=== PATIENT | female | born 1985 | race Caucasian/White ===

== ENCOUNTER 2020-05-11 16:49 | Emergency (ER) | payer MEDICAID, SELFPAY ==
[2020-05-11 16:57] VITALS: BP 140/89; PULSE 85; RESP 20; TEMP 36.8; O2SAT 98; BMI 38.3
[2020-05-11 16:59] VITALS: BP 140/89; PULSE 85; RESP 20; TEMP 36.8; O2SAT 98; BMI 38.4
--- NOTE | 2020-05-11 17:03 | XR_ITS ---
PROCEDURE: XR RIBS LT MIN 3V W CXR1V CLINICAL INDICATION: FALL COMPARISON: No exams were available for comparison FINDINGS: All the left ribs 1 through 12 are visualized and appear intact with no evidence of recent or old fracture. The lung mackey are clear of infiltrate. The cardiac silhouette and vascularity are normal and there is no pleural fluid and no pneumothorax. IMPRESSION: No acute findings. Dictated by: Dr. Andrei Gleason MD 05/11/2020 19:39 Dr. Andrei Gleason MD in [place] 05/11/2020 19:39
--- NOTE | 2020-05-11 17:31 | HMH.EDUTC ---
[facility] [place] Disposition Clinical Impression: Rib contusion Qualifiers: Encounter type: initial encounter Laterality: left Qualified Code(s): S20.212A - Contusion of left front wall of thorax, initial encounter Disposition: Home, Self-Care Condition on Discharge: Good Instructions: DI for Rib Contusion, Contusion, DI for Contusion, Etodolac Additional Instructions: *Etodolac every 6 hours with meal as needed for pain/inflammation *Not additional anti-inflammatory like motrin, ibuprofen, aleve, advil with the above amount of Etodolac. You can still take Tylenol every 4 hours as needed if you need something else for pain *Ice 20 minutes every 2 hours for the first 48 hours after the initial injury followed by moist heat every 20 minutes 3-4 times a day to affected area *Keep this area active, no movement leads to more stiffness, However take it easy and avoid heavy lifting pushing or pulling *Follow up with you family doctor if no improvement for further treatment You may call back to the [facility] later this evening or tomorrow for official reading of your xray Follow up with your family doctor if no improvement or any worsening of symptoms May use over the counter Lidocaine patches may help with pain and discomfort Prescriptions: Etodolac [Etodolac 200mg Cap*] 200 mg PO Q6H PRN #20 cap PRN Reason: Moderate Pain Transmission Status: Pending to [facility] #[id number] Referrals: Moris Mosqueda [Primary Care Provider] - As needed Time of Disposition: 17:43 Medical Decision Making - Dylan Inquiry Pt receiving controlled substance: No Dylan was queried for this patient: No Vital Signs: 05/11/20 16:57 05/11/20 16:59 Temperature 98.2 F 98.2 F Temperature Source Oral Oral Pulse Rate [Left Radial] 85 85 Respiratory Rate 20 20 Blood Pressure [Right Arm] 140/89 140/89 Blood Pressure Mean [Right Arm] 106 106 Blood Pressure Source [Right Arm] Automatic Cuff Automatic Cuff Blood Pressure Position [Right Arm] Sitting Sitting 02 Sat by Pulse Oximetry 98 98 Oxygen Delivery Method Room Air Room Air Orders (Tests/Meds): ORDERS Category Date Time Status XR ribs LT min 3V w CXR1V Stat Exams 05/11/20 17:03 Taken - Radiology Data #1 Image(s): Chest (with left ribs 3 view) Image Reviewed: Yes I reviewed the patient's radiology image w/the ED provider Preliminary Findings: Normal/NAD, No Fracture Seen [facility] [place] HPI - General Stated complaint: Possible broken L ribs, fell 1023 Time Seen by Provider: 05/11/20 17:31 Mode of Arrival: Ambulatory Source of Information: Patient Limitations: No Limitations Description of Symptoms (Recalled from Triage Doc. by RN): c/o left rib pain, states she fell out of the chair on her right side but her left hurts. Denies any other injuries at this time. HEENT Symptoms (Recalled from RN notes): No Resp Symptoms (Recalled from RN notes): No Skin Symptoms (Recalled from RN notes): No MS Symptoms (Recalled from RN notes): Yes Functional Status (Recalled from RN notes): wnl - History of Present Illness Provider Complaint: Patient states that she fell over a week ago and has been having pain in her left lower rib area States that Tuesday it was doing better so she went to a [employer] and not sure if she over done it or what but ever since she has been having pain in her left lower ribs that is worse with movement or when she goes to stand up Denies any other injury - Related Data Previous Rx's Medication Instructions Recorded Etodolac [Etodolac 200mg Cap*] 200 mg PO Q6H PRN #20 cap 05/11/20 Allergies Allergy/AdvReac Type Severity Reaction Status Date / Time From CLARITIN-D Allergy Unknown I-HIVES Uncoded 06/28/17 14:44 - Worker's Comp Is this a Worker's Comp case?: No [facility] History - Hepatitis A Screen Drug use history?: No High risk sexual behaviors?: No History of sexually transmitted infection?: No Currently employed?: No Childcare worker?: No Do you have indoor plumbing?: Ye
[2020-05-11 17:48] VITALS: BP 140/89; PULSE 85; RESP 20; TEMP 36.8; O2SAT 98
== END 2020-05-11 17:49 | disposition home or self-care (01) ==
LOC: ER 16:57 → UTC 16:58
PROVIDERS: Emergency Provider Nurse Practitioner; PCP Family Medicine
DX: S20.212A Contusion of left front wall of thorax, initial encounter (principal); W01.0XXA Fall on same level from slipping, tripping and stumbling without subsequent striking against object, initial encounter; Y92.019 Unspecified place in single-family (private) house as the place of occurrence of the external cause
CPT/HCPCS: 71101; 99201

== ENCOUNTER 2022-06-15 13:02 | Emergency (ER) | payer MEDICAID, SELFPAY ==
--- NOTE | 2022-06-15 13:02 | ECG_ITS ---
APPROVED REPORT Exam: Resting ECG HR:96 bpm ECG Measurements Heart Rate 96 AXES [place] 139 P 48 QRSd 86 QRS 57 QT 338 T 29 QTc 391 Conclusion SINUS RHYTHM NORMAL ECG UNCONFIRMED REPORT Electronically signed by : Robert Rios MD 06/15/2022 20:55:41
[2022-06-15 13:07] VITALS: BP 127/86; PULSE 94; RESP 18; TEMP 36.8; O2SAT 98; BMI 39.1
[2022-06-15 13:08] VITALS: BMI 39.1
--- NOTE | 2022-06-15 13:08 | XR_ITS ---
FINAL REPORT TECHNIQUE: Chest PA & Lateral CLINICAL HISTORY: chest pain COMPARISON: May 2020 FINDINGS: 2 views of the chest were performed. The heart size is normal. The mediastinum is within normal limits. There is mild bronchial wall thickening consistent with bronchitis. There are no pleural effusions. There is no pneumothorax. The bony thorax appears intact. IMPRESSION: Bronchitis. Reviewed, Interpreted and Dictated by Yash Porter III, MD Transcribed by Virgilio Chavarria Authenticated and [facility]
[2022-06-15 13:16] LABS: Coronavirus 19, PCR Not Detected (NotDetected); Influenza A, PCR Not Detected (NotDetected); Influenza B, PCR Not Detected (NotDetected)
--- NOTE | 2022-06-15 13:17 | HMH.EDABDPAI ---
Discharge Plan Disposition Patient Disposition: Home, Self-Care Condition: Good Prescriptions Prescriptions: No Action etodolac 200 MG capsule 200 mg PO Q6H PRN (Reason: Moderate Pain) Qty: 20 0RF Referrals Follow up/Referrals: Tammie Skaggs [Primary Care Provider] - See instructions Activity Restrictions/Add. Instructions Additional Instructions/Restrictions: Please follow-up with your primary care physician within the next 1 to 2 days given your symptoms. May require further cardiac work-up. If symptoms recur please return back to the emergency department. You will be notified if your COVID/flu swab is positive. If positive please self quarantine for 5 days for COVID. Please take Tylenol and ibuprofen for comfort and return if symptoms recur. Clinical Impressions Clinical Impression: Atypical chest pain Instructions Patient Instructions: DI for Atypical Chest Pain Print Language Print Language: Kazakh Discharge ED Provider: Delaney Irwin Abdominal Pain HPI General Chief Complaint: Chest Pain Stated Complaint: chest pain Time Seen by Provider: 06/15/22 13:02 Mode of Arrival: Ambulatory Source of Information: Patient Limitations: No Limitations History of Present Illness HPI narrative: 37 yo female w/ no significant PMH presenting to the ED for chest pain which started 1-2 days prior. Patient denies any LE swelling/pain. No hx of blood clots. Reports cough and increased congestion, denies any fevers or other infectious symptoms. No recent trauma to chest. No hx of GERD. Denies any bowel changes or urinary sx. Related Data Previous Rx's Medication Instructions Recorded etodolac 200 mg capsule 200 mg PO Q6H PRN Moderate Pain 05/11/20 #20 caps Allergies Allergy/AdvReac Type Severity Reaction Status Date / Time From CLARITIN-D Allergy Unknown I-HIVES Uncoded 06/28/17 14:44 [facility] Disclaimer: The information contained in this section may have been updated after the patient was seen, as this information can be updated by other users. Social History Smoking Status: Never smoker alcohol intake: never current occupational status: employed Travel in the last 8 weeks: None housing: house ROS Obtained: Yes All systems reviewed & no additional complaints except as documented Physical Exam General General appearance: alert and in no apparent distress Head Head exam: atraumatic and normal inspection Eye Eye exam: Present normal appearance and EOMI ENT ENT exam: Present normal exam and mucous membranes moist Neck Neck exam: Present normal inspection and full ROM Chest Chest inspection: Present normal inspection and symmetric chest wall rise Respiratory Respiratory exam: Present normal lung sounds bilaterally Cardiovascular Cardiovascular exam: Present regular rate and normal heart sounds Abdominal Exam Abdominal exam: Present soft and normal bowel sounds Extremities Exam Extremities exam: Present normal inspection and full ROM Back Exam Back exam: Present normal inspection and full ROM Neurological Exam Neurological exam: Present alert and oriented X3 Skin Skin exam: Present warm and normal color Medical Decision Making Medical Records Medical records reviewed: Yes I reviewed the patient's medical records. Dylan Inquiry Pt receiving controlled substance: No Vital Signs: 06/15/22 13:07 06/15/22 14:01 06/15/22 14:30 Temperature 98.2 F 98.2 F Temperature Source Oral Oral Pulse Rate 82 96 H Pulse Rate [Left Radial] 94 H Respiratory Rate 18 20 18 Blood Pressure 117/85 117/85 Blood Pressure [Right Arm] 127/86 Blood Pressure Mean 94 Blood Pressure Mean [Right Arm] 99 Blood Pressure Source Automatic Cuff Blood Pressure Source [Right Arm] Automatic Cuff Blood Pressure Position Sitting Blood Pressure Position [Right Arm] Sitting 02 Sat by Pulse Oximetry 98 97 Oxygen Delivery Method
[2022-06-15 13:18] LABS: Basophils # 0.1 K/mm3 (0-0.2); Basophils % 1.3 % (0.1-2.0); Eosinophils # 0.3 K/mm3 (0.0-0.4); Hematocrit 48.8 % (37.0-47.0); Hemoglobin 16.1 g/dL (12.2-16.2); Lymphocytes # 2.6 K/mm3 (0.7-4.5); Lymphocytes % 29.1 % (10-50); Mean Corpuscular HGB Conc 32.9 g/dL (31.8-35.4); Mean Platelet Volume 8.3 fl (7.4-10.4); Monocytes # 0.4 K/mm3 (0.1-1.0); Monocytes % 3.8 % (1.7-9.3); Neutrophils # 5.7 K/mm3 (1.8-7.8); Neutrophils % 62.8 % (37.0-80.0); Platelet Count 318 K/mm3 (142-424); Red Blood Count 4.87 M/mm3 (4.20-5.40); Red Cell Distribution Width 13.9 % (11.5-17.5); White Blood Count 9.1 K/mm3 (4.8-10.8)
[2022-06-15 13:37] LABS: Chloride 105 mmol/L (98-107); Sodium 135 mmol/L (136-145)
[2022-06-15 13:38] LABS: Potassium 3.8 mmoL/L (3.5-5.1)
[2022-06-15 13:40] LABS: Blood Urea Nitrogen 10 mg/dl (7-17); Creatinine Clearance Estimated 172 mL/min (50-200); Estimated Glomerular Filt Rate 81 ml/min (>60); GFR (African American) 98 ML/MIN (>60)
[2022-06-15 13:41] LABS: Anion Gap 10.8 mEq/L (5-15); Calcium 9.6 mg/dl (8.4-10.2); Carbon Dioxide 23 mmol/L (22.0-30.0); Glucose 101 mg/dl (74-100)
[2022-06-15 13:58] LABS: Troponin I < 0.01 ng/ml (0.00-0.034)
[2022-06-15 14:01] VITALS: BP 117/85; PULSE 82; RESP 20; O2SAT 97
--- NOTE | 2022-06-15 14:21 | HMH.EDGENADL ---
Discharge Plan Disposition Patient Disposition: Home, Self-Care Condition: Good Prescriptions Prescriptions: No Action etodolac 200 MG capsule 200 mg PO Q6H PRN (Reason: Moderate Pain) Qty: 20 0RF Referrals Follow up/Referrals: Tammie Skaggs [Primary Care Provider] - See instructions Activity Restrictions/Add. Instructions Additional Instructions/Restrictions: Please follow-up with your primary care physician within the next 1 to 2 days given your symptoms. May require further cardiac work-up. If symptoms recur please return back to the emergency department. You will be notified if your COVID/flu swab is positive. If positive please self quarantine for 5 days for COVID. Please take Tylenol and ibuprofen for comfort and return if symptoms recur. Clinical Impressions Clinical Impression: Atypical chest pain Instructions Patient Instructions: DI for Atypical Chest Pain Print Language Print Language: Romanian Discharge ED Provider: Delaney Irwin Adult HPI General Chief complaint: Chest Pain Stated complaint: chest pain Time Seen by Provider: 06/15/22 13:02 Mode of Arrival: Ambulatory Source of Information: Patient Limitations: No Limitations Description of Symptoms (Recalled from ER Triage Doc. by RN): c/o center chest pain that goes up her neck and to arms off and once since Tuesday. History of Present Illness HPI narrative: Ms. Jordan is a 37-year-old female presenting with substernal chest pain. Reports pain radiates into her arms and into her throat. Intermittent symptoms since Tuesday. She denies any fevers, cough or other infectious-like symptoms. No recent trauma to the chest. Denies any lower extremity swelling or pain. MD complaint: Chest pain Onset (ago): day(s) Location: chest Radiation: extremity Severity: mild Quality: burning Consistency: intermittent Relieving factors: none Exacerbating factors: none Associated symptoms: denies other symptoms Treatments prior to arrival: none Related Data Previous Rx's Medication Instructions Recorded etodolac 200 mg capsule 200 mg PO Q6H PRN Moderate Pain 05/11/20 #20 caps Allergies Allergy/AdvReac Type Severity Reaction Status Date / Time From CLARITIN-D Allergy Unknown I-HIVES Uncoded 06/28/17 14:44 [facility] Disclaimer: The information contained in this section may have been updated after the patient was seen, as this information can be updated by other users. Social History Smoking Status: Never smoker alcohol intake: never current occupational status: employed Travel in the last 8 weeks: None housing: house ROS Obtained: Yes All systems reviewed & no additional complaints except as documented Physical Exam General General appearance: alert and in no apparent distress Head Head exam: atraumatic and normal inspection Eye Eye exam: Present normal appearance ENT ENT exam: Present normal exam and mucous membranes moist Neck Neck exam: Present normal inspection and full ROM Chest Chest inspection: Present normal inspection and symmetric chest wall rise Respiratory Respiratory exam: Present normal lung sounds bilaterally Cardiovascular Cardiovascular exam: Present regular rate Abdominal Exam Abdominal exam: Present soft and normal bowel sounds Extremities Exam Extremities exam: Present normal inspection and full ROM Back Exam Back exam: Present normal inspection and full ROM Neurological Exam Neurological exam: Present alert and oriented X3 Medical Decision Making Medical Records Medical records reviewed: Yes I reviewed the patient's medical records. Dylan Inquiry Pt receiving controlled substance: No Vital Signs: 06/15/22 13:07 06/15/22 14:01 06/15/22 14:30 Temperature 98.2 F 98.2 F Temperature Source Oral Oral Pulse Rate 82 96 H Pulse Rate [Left Radial] 94 H Respiratory Rate 18 20 18 Blood Pressure 117/85 117/85 Blood
[2022-06-15 14:30] VITALS: BP 117/85; PULSE 96; RESP 18; TEMP 36.8; O2SAT 98
== END 2022-06-15 14:32 | disposition home or self-care (01) ==
PROVIDERS: Emergency Provider Student in an Organized Health Care Education/Training Program; PCP Family Medicine
DX: R07.9 Chest pain, unspecified (principal); J02.9 Acute pharyngitis, unspecified; M54.2 Cervicalgia; M79.602 Pain in left arm; M79.601 Pain in right arm; Z20.822 Contact with and (suspected) exposure to COVID-19
CPT/HCPCS: 71046; 80048; 84484; 85025; 93005; 99284; C9803; U0003; U0005

== ENCOUNTER → 2022-08-10 11:00 | Outpatient (CLI) | payer MEDICAID, SELFPAY ==
[2022-08-10 19:05] LABS: Alanine Aminotransferase 29 U/L (12-78); Albumin Level 4.6 g/dl (3.5-5.0); Albumin/Globulin Ratio 1.5 (1.1-1.8); Alkaline Phosphatase 90 U/L (38-126); Aspartate Amino Transferase 34 U/L (14-36); Bilirubin,Total 0.6 mg/dl (0.2-1.3); Blood Urea Nitrogen 14 mg/dl (7-17); Calcium 9.8 mg/dl (8.4-10.2); Carbon Dioxide 24 mmol/L (22.0-30.0); Chloride 104 mmol/L (98-107); Chol/HDL Ratio 3.8 (1-3.5); Cholesterol 220 mg/dl (140-200); Estimated Glomerular Filt Rate 94 ml/min (>60); GFR (African American) 114 ML/MIN (>60); Glucose 91 mg/dl (74-100); HDL Cholesterol 58 mg/dl (40-60); Sodium 136 mmol/L (136-145); Total Protein,Serum 7.6 g/dl (6.3-8.2); Triglycerides 181 mg/dl (30-150); VLDL Cholesterol 36 mg/dL (0-40)
[2022-08-10 19:16] LABS: Direct LDL Cholesterol 135.03 mg/dL (100-129)
[2022-08-10 19:28] LABS: Anion Gap 12.6 mEq/L (5-15); Potassium 4.6 mmoL/L (3.5-5.1)
[2022-08-10 19:35] LABS: Thyroid Stimulating Hormone 1.22 uIU/mL (0.465-4.68)
== END ==
PROVIDERS: PCP Family Medicine; Visit Provider Family Medicine
DX: E78.5 Hyperlipidemia, unspecified (principal); F41.9 Anxiety disorder, unspecified
CPT/HCPCS: 80053; 80061; 84443

== ENCOUNTER → 2022-10-05 17:19 | Outpatient (CLI) | payer MEDICAID, SELFPAY ==
[2022-10-05 21:36] LABS: Anion Gap 14.9 mEq/L (5-15); Blood Urea Nitrogen 11 mg/dl (7-17); Calcium 9.7 mg/dl (8.4-10.2); Carbon Dioxide 25 mmol/L (22.0-30.0); Chloride 101 mmol/L (98-107); Estimated Glomerular Filt Rate 81 ml/min (>60); GFR (African American) 98 ML/MIN (>60); Glucose 62 mg/dl (74-100); Potassium 4.9 mmoL/L (3.5-5.1); Sodium 136 mmol/L (136-145)
[2022-10-05 22:42] LABS: Vitamin B12 662 pg/mL (239-931)
== END ==
PROVIDERS: PCP Family Medicine; Visit Provider Family Medicine
DX: D75.89 Other specified diseases of blood and blood-forming organs (principal); E78.5 Hyperlipidemia, unspecified
CPT/HCPCS: 80048; 82607; 82746

== ENCOUNTER → 2023-06-20 23:33 | Outpatient (CLI) | payer MEDICAID, SELFPAY | PROVIDERS: PCP Family Medicine; Visit Provider Nurse Practitioner | DX: R30.0 Dysuria (principal); B96.29 Other Escherichia coli [E. coli] as the cause of diseases classified elsewhere | CPT/HCPCS: 87086 ==